=== PATIENT | female | born 1960 | race Two or more races ===

== ENCOUNTER 2019-03-24 07:34 | Outpatient (CLI) | payer OTHER | END 2019-03-24 07:37 | disposition home or self-care (01) | LOC: MAMO-SONO 07:34 | DX: Z12.31 Encounter for screening mammogram for malignant neoplasm of breast (principal) ==

== ENCOUNTER → 2021-03-31 13:08 | Outpatient (CLI) | payer OTHER | END | disposition home or self-care (01) | LOC: LAB 13:08 | PROVIDERS: ATTEND Urology | DX: N30.00 Acute cystitis without hematuria (principal) ==